=== PATIENT | female | born 1990 | race Caucasian/White ===

== ENCOUNTER 2024-05-28 01:19 | Emergency (ER) | payer SELFPAY ==
[2024-05-28] VITALS (8 sets, daily range): BP systolic 93–124; BP diastolic 58–77; PULSE 66–75; BMI 22.4
--- NOTE | 2024-05-28 01:46 | ED.GENMED ---
History of Present Illness
General
Chief Complaint: Fainting/Passed Out
Source: patient
Exam Limitations: none
Time Seen by Provider: 05/28/24 01:33
History of Present Illness
History of Present Illness:
This is a 34 year old female that comes in with c/o syncope. States that she passed out. But before she passed out she got lightheaded/dizzy and her body felt weird. States that she went up to bed and she must have passed out as when she woke up she
had vomit in her mouth and on her pillow. States that she did smoke a cigarette. States that she has pain in the back of her head and a headache. Denies any fever, chills, chest pain, SOB, abd pain, diarrhea, dizziness, urinary burning.
Past History
Past History
ED Past Medical History: Asthma (as child), Psychiatric (Anxiety/depression) and Other (Migraines, Ovarian cyst)
ED Past Surgical History: Other (Myringotomy tubes.)
Social History
Tobacco: Smoker
Alcohol: Other (Recovering)
Drug: Former user
Personal:
Living: with family
Employment: Employed (Self-employed)
Family History
Family History: Other (Noncontributory)
Review of Systems
Review of Systems
All Other Systems: ROS reviewed and negative except as documented in HPI and ROS
Constitutional: Reports no symptoms; Denies fever or chills
EENT: Reports no symptoms
Respiratory: Reports no symptoms; Denies cough or trouble breathing
Cardiac: Reports no symptoms; Denies chest pain
ABD/GI: Reports vomiting; Denies abdominal pain, nausea or diarrhea
: Reports no symptoms; Denies dysuria, frequency or urgency
Musculoskeletal: Reports no symptoms
Skin: Reports no symptoms
Neurological: Reports headache
Psychiatric: Reports no symptoms
Phy Exam
General Physical Exam
General Presentation: well appearing and no apparent distress
General age: appears stated age
General Skin: warm and dry
General Habitus: normal
General Mental: alert
General Hydration: appears well hydrated
ENT Exam
ENT Exam: TM's normal, pharynx normal and neck supple
Eye Exam
Eye Exam: EOMI
Cardiovascular Exam
Cardiovascular Exam: regular rate/rhythm, no edema, no murmur and normal peripheral pulses
Pulmonary Exam
Pulmonary Exam: lungs clear, no respiratory distress, no rales, chest non tender, no crackles, no rhonchi, no wheezing and no cough
Gastrointestinal Exam
Gastrointestinal Exam: normal bowel sounds, non tender, soft, no organomegaly, no pulsatile mass, non distended and other (stool brown hem negative. )
Musculoskeletal Exam
Musculoskeletal Exam: full ROM and no edema
Skin Exam
Skin Exam: normal color, warm/dry, no rash and no petechia
Psychiatric Exam
Psychiatric Exam: normal mood/affect
Course
Orders/Labs/Results
Orders:
Orders
05/28/24 01:45
Electrocardiogram (*1) Urgent
Reason for Study: Syncope
EKG- Treatment ONCE
Test Result ONCE
05/28/24 01:46
CT Head W/o Iv Contrast Urgent
Comment:
Reason For Exam: pain back of head, Syncope, headache
05/28/24 01:52
Ondansetron Injectable [Zofran] 4 mg IV NOW STA
05/28/24 01:53
Urinalysis Reflex To Culture Urgent
Urine Drug Abuse Screen Urgent
05/28/24 02:06
Complete Blood Count/With Diff Urgent
Comprehensive Metabolic Panel Urgent
HCG, Serum Qualitative Screen Urgent
05/28/24 02:41
Orthostatic VS- Treatment ONCE
05/28/24 02:46
0.9% Sodium Chloride 500 ml [Nss] 500 ml IV BOLUS
Abnormal Lab Results
05/28/24
02:06
RBC 4.02 L 10^6/uL
(4.20-5.40)
Hgb 7.8 L g/dL
(12.0-16.0)
Hct 26.9 L %
(37.0-47.0)
MCV 66.9 L fL
(81.0-99.0)
MCH 19.4 L pg
(27.0-31.0)
MCHC 29.0 L g/dL
(33.0-37.0)
RDW 16.2 H %
(11.5-14.5)
BUN 22 H mg/dl
(7-17)
Glucose 103 H mg/dl
(70-99)
05/28/24 02:06
05/28/24 02:06
H/H low. Anemic (microcytic anemia) Dehydration. Glucose nonfasting. HCG negative.
Vital Signs
Initial and Last Documented VS:
Initial Vital Signs
Temp Pulse Resp BP Pulse Ox
98.1 F 73 16 124/68 100
05/28/24 01:29 05/28/24 01:29 05/28/24 01:29 05/28/24 01:29 05/28/24 01:29
Last Documented Vital Signs
Temp Pulse Resp BP Pulse Ox
98.1 F 73 16 117/62 100
05/28/24 01:29 05/28/24 01:29 05/28/24 01:29 05/28/24 01:45 05/28/24 01:47
MDM/Problems Addressed
Differential Diagnosis Includes:
Syncope, Migraine,
MDM/Problems Addressed:
This is a 34 year old female that comes in with c/o getting this weird feeling all over her body, after smoking. States that she was lightheaded and went up to bed. states that she must has passed out as she had vomit in her mouth and on her pillow
when she woke up. States that she has pain in the back of her head.
will check labs, ECG, CT head and urine Patient refused IV fluids and Zofran.
Back into see patient. Explained that she is anemic and her Hgb is low. Patient state that she had a very heavy period around Halloween for 12 days. States that she has taken iron in the past. Explained that this is the part of the blood that
carries the oxygen. When she is smoking there is less oxygen available due to the her low hgb and smoking. This may have caused her syncope. Explaine to patient that she needs to be taking her iron every day. Patient will need to follow up with the
family doctor for recheck on her labs in about 10days. Will discharge patient home.
Chronic conditions affecting care: Psychiatric illness
Acute Exacerbation and/or Progression of Chronic Illness: Psychiatric illness
*Radiology
Radiology exam reviewed: radiology read reviewed (CT head night hawk- No acute intracranial abnormality. NO acute territorial infarct, hemorrhage, mass effect, or midline shift. )
*Pulse Oximetry
Patient hypoxic: no
*EKG
Interpreted by ED Provider?: Yes
Heart Rate: 63
Rate: normal
Rhythm: sinus
[place]: normal axis
Interval: normal interval
QRS Pattern: normal QRS
Ischemia: no ischemia
*Critical Care Note
Total Time (30-74mins, 75-104mins- exclusive of procedures): Not Applicable
ED Attending Note
-
Portions of this chart may have been created with voice recognition software.� Occasional wrong word or��sound alike� substitutions may have occurred due to the inherent limitations of voice recognition software.
Discharge Plan
Departure
Patient Disposition: Home (Routine Discharge)
Date of Disposition: 05/28/24
Time of Disposition: 02:54
Patient with high blood pressure during this ER visit?: No
Condition: Good
Covid-19: Not Applicable
Discharge Problem:
Syncope, Anemia
Instructions: Anemia caused by low iron, Syncope (Fainting) (DC)
Prescriptions:
No Action
Excedrin Extra Strength 250-250-65 mg Tablet
2 - 6 tab PO DAILYPRN PRN (Reason: headaches)
Activity Restrictions/Additional Instructions:
As discussed, your blood work shows that you are anemic. Please take your daily iron to help increased your Hemiglobin. This is the part of the blood that carries your oxygen. When you are smoking you have less oxygen available due to the cigarette
smoking. Please increase your water intake to 8-8oz glasses daily. You will need to follow up with the family doctor for repeat labs in [address] of the head is normal. IF YOU HAVE ANY FURTHER DIZZINESS, SYNCOPE OR YOU HAVE ANY OTHER
CONCERNS PLEASE RETURN TO THE EMERGENCY ROOM.
Interventions
Interventions:
*Risk Screen - Suicide Last Done: 05/28/24 01:29
*General Assessment Last Done: 05/28/24 01:46
*Neglect/Abuse Screening Last Done: 05/28/24 01:29
*ED COVID-19 Vaccine History Last Done: 05/28/24 01:29
Discharge Date and Time
Print Language: SINHALA
[2024-05-28 02:15] LABS: % Basophils 0.7 % (0-2); % Eosinophils 0.9 % (0-6); % Immature Granulocytes 0.5 % (0-0.5); % Lymphocytes 24.7 % (20.5-51.1); % Monocytes 6.1 % (1.7-9.3); % Neutrophils 67.1 % (42.2-75.2); Absolute Eosinophils 0.1 10^3/uL (0-0.7); Absolute Lymphocytes 1.4 10^3/uL (1.2-3.4); Absolute Monocytes 0.3 10^3/uL (0.1-0.6); Absolute Neutrophils 3.7 10^3/uL (1.4-6.5); Hematocrit 26.9 % (37.0-47.0); Hemoglobin 7.8 g/dL (12.0-16.0); Mean Corpuscular Hgb 19.4 pg (27.0-31.0); Mean Corpuscular Volume 66.9 fL (81.0-99.0); Mean Platelet Volume 8.4 fL (7.4-10.4); Nucleated Red Blood Cells % 0 %; Platelet Count 344 10^3/uL (130-400); Red Blood Cell Count 4.02 10^6/uL (4.20-5.40); Red Cell Dist. Width 16.2 % (11.5-14.5); White Blood Cell Count 5.6 10^3/uL (4.8-10.8)
[2024-05-28 02:24] LABS: HCG, Serum Qualitative Screen Negative
[2024-05-28 02:27] LABS: ALT (SGPT) 22 U/L (0-35); AST (SGOT) 33 U/L (14-36); Albumin 4.6 g/dl (3.5-5.0); Alkaline Phosphatase 57 U/L (38-126); Blood Urea Nitrogen 22 mg/dl (7-17); Calcium 9.7 mg/dl (8.4-10.2); Carbon Dioxide 28 mmol/L (22-30); Chloride 105 mmol/L (98-107); Estimated Creatinine Clearance 113 ml/min; Glucose 103 mg/dl (70-99); Potassium 4.5 mmol/L (3.5-5.1); Sodium 141 mmol/L (135-145); Total Bilirubin 0.2 mg/dl (0.2-1.3); Total Protein 6.8 g/dl (6.3-8.2); eGFR > 60.00
== END 2024-05-28 03:10 | disposition home or self-care (01) ==
LOC: EMR 01:19
PROVIDERS: Clinical Nurse Specialist Family Health; EMERGENCY PHYSICIAN Emergency Medicine; FAMILY PHYSICIAN Physician Assistant Medical
DX: R55 Syncope and collapse (principal); D64.9 Anemia, unspecified; J45.909 Unspecified asthma, uncomplicated; F17.210 Nicotine dependence, cigarettes, uncomplicated
CPT/HCPCS: 99284; 70450; 80053; 84703; 85025; 93005